=== PATIENT | female | born 1980 | race American Indian/Alaskan Native ===

== ENCOUNTER 2016-09-21 17:24 | Emergency (ER) | payer OTHER ==
[2016-09-21 17:39] VITALS: BMI 31.6
[2016-09-21 17:49] VITALS: RESP 18; TEMP 98.5
--- NOTE | 2016-09-21 18:25 | C.PDOC ---
History Of Present Illness 36 Y/O FEMALE PRESENTS TO ED REQUESTING TESTS FOR SYPHILLIS AND HEPATITIS B. PT STATES SHE NEEDS TESTING FOR PRE-OP WORK. NOTES PMD SENT TO [facility] BUT IS CURRENTLY ON VACATION, STATES SHE NEEDS THE RESULTS BY 10/01. CURRENTLY ASYMPTOMATIC WITH NO OTHER COMPLAINTS. Time Seen by Provider: 09/21/16 18:05 Chief Complaint (Nursing): Female Genitourinary History Per: Patient History/Exam Limitations: no limitations Onset/Duration Of Symptoms: Days Current Symptoms Are (Timing): Still Present Recent travel outside of the [place]: No Past Medical History Reviewed: Historical Data, Nursing Documentation, Vital Signs Vital Signs: Last Vital Signs Temp 98.5 F 09/21/16 17:45 Pulse 100 H 09/21/16 17:45 Resp 18 09/21/16 17:45 BP 148/93 H 09/21/16 17:45 Pulse Ox 100 09/21/16 18:45 - Medical History PMH: Asthma (childhood) Family History: States: Unknown Family Hx - Social History Hx Tobacco Use: No Hx Alcohol Use: Yes Hx Substance Use: No - Immunization History Hx Tetanus Toxoid Vaccination: No Hx Influenza Vaccination: Yes Hx Pneumococcal Vaccination: No Review Of Systems Except As Marked, All Systems Reviewed And Found Negative. Constitutional: Negative for: Fever, Chills Cardiovascular: Negative for: Chest Pain, Palpitations Respiratory: Negative for: Shortness of Breath Gastrointestinal: Negative for: Nausea, Vomiting, Abdominal Pain Skin: Negative for: Rash Neurological: Negative for: Headache, Dizziness Physical Exam - Physical Exam Appears: Non-toxic, No Acute Distress Skin: Warm, Dry Head: Atraumatic, Normacephalic Chest: Symmetrical Cardiovascular: Rhythm Regular Respiratory: Normal Breath Sounds, No Rales, No Rhonchi, No Wheezing Gastrointestinal/Abdominal: Soft, No Tenderness, No Guarding, No Rebound Back: Normal Inspection Extremity: Normal ROM Neurological/Psych: Oriented x3, Normal Speech, Normal Cognition ED Course And Treatment O2 Sat by Pulse Oximetry: 100 (RA) Pulse Ox Interpretation: Normal Reevaluation Time: 19:00 Reassessment Condition: Unchanged (PT GIVEN TEST RESULTS, ADVISED NEED TO FOLLOW UP WITH PMD FOR FURTHER MANAGEMENT/EVALUATION OF RESULTS.) Disposition Counseled Patient/Family Regarding: Studies Performed, Diagnosis, Need For Followup - Disposition Referrals: YOUR,PMD [Other] Disposition: HOME/ ROUTINE Disposition Time: 19:30 Condition: GOOD Forms: General Discharge Instructions - Clinical Impression Clinical Impression: Encounter for medical assessment, Preop testing - Scribe Statement The provider has reviewed the documentation as recorded by the Scribjony GRANT All medical record entries made by the Rebelibe were at my direction and personally dictated by me. I have reviewed the chart and agree that the record accurately reflects my personal performance of the history, physical exam, medical decision making, and the department course for this patient. I have also personally directed, reviewed, and agree with the discharge instructions and disposition.
--- NOTE | 2016-09-21 18:26 | C.PDOC ---
Time Seen by Provider: 09/21/16 18:05 Chief Complaint (Nursing): Female Genitourinary Past Medical History Vital Signs: Last Vital Signs Temp 98.5 F 09/21/16 17:45 Pulse 100 H 09/21/16 17:45 Resp 18 09/21/16 17:45 BP 148/93 H 09/21/16 17:45 Pulse Ox 100 09/21/16 18:25 - Medical History PMH: Asthma (childhood) Family History: States: Unknown Family Hx - Social History Hx Tobacco Use: No Hx Alcohol Use: Yes Hx Substance Use: No - Immunization History Hx Tetanus Toxoid Vaccination: No Hx Influenza Vaccination: Yes Hx Pneumococcal Vaccination: No ED Course And Treatment O2 Sat by Pulse Oximetry: 100 (RA)
[2016-09-21 20:01] VITALS: BP 128/75; PULSE 82; O2SAT 98
== END 2016-09-21 20:01 | disposition home or self-care (01) ==
LOC: C.ER 17:24
DX: Z01.812 Encounter for preprocedural laboratory examination (principal)